=== PATIENT | male | born 1960 | race Caucasian/White ===

== ENCOUNTER 2021-03-07 06:22 | Observation (INO) | payer OTHER ==
[2021-03-07] VITALS (8 sets, daily range): BP systolic 107–138; BP diastolic 65–91
[~2021-03-07] VITALS: Ht 182.9 cm; Wt 120.7 kg
--- NOTE | ~2021-03-07 | P ---
[facility] [place] [address] PROCEDURE REPORT Name: IDANIA PEDERSEN Room #: 208-P [facility] Fabian Holt#: [id number] Admission: 03/07/21 Attend Phys: Parvez Pelayo MD Discharge: 03/08/21 Date of : 56 Report #: [id number] THIS REPORT FOR: cc: David Sandhu MD, Prashanth S. MD Couchonnal, Luis F. MD ~ PREOPERATIVE DIAGNOSIS: Atrial fibrillation. POSTOPERATIVE DIAGNOSIS: Atrial fibrillation. PROCEDURES PERFORMED: 1. Atrial fibrillation ablation, CPT code 03859. 2. 3D mapping, CPT code 12216. 3. Intracardiac echo, CPT code 22457. 4. Focal ablation, CPT code 21063. HISTORY: The patient is a 60-year-old male with history of AFib, here for ablation. ANESTHESIA: The patient underwent general anesthesia with no anesthesia related complications. DESCRIPTION OF PROCEDURE: The patient underwent informed consent. He was then brought to the EP laboratory in a fasting and sedated state, prepped and draped in a standard fashion. I then obtained access to the right femoral vein x 3, placing an 8, 9 and 7-Khmer short sheath. Under fluoroscopy, I placed a Decapolar catheter in the coronary sinus and an ICE catheter in the right atrium. At baseline, the patient was in atrial fibrillation. The patient was systemically heparinized. Transseptal was performed using an SL1 sheath and a [place] needle, which was straightforward and then I exchanged for the cryosheath and placed the Lasso catheter in the left atrium and created a detailed 3D voltage map of the left atrium. I then started isolating the pulmonary veins. The left superior pulmonary vein underwent a 300-second freeze isolating at 125 seconds. The left inferior pulmonary vein underwent a 4-minute followed by 3-minute freeze. The vein isolated during the second freeze at 37 seconds. The right superior pulmonary vein underwent a 300-second freeze and isolated at 120 seconds. The right inferior pulmonary vein underwent multiple freezes and was initially isolated and then on repeat voltage mapping, there was a small area of signal noted along the posterior walter. Multiple ablation attempts at this site, which did not make these signals disappear, but on repeat voltage mapping the area around this vein appeared isolated. The patient then underwent posterior wall isolation. I performed 3 freezes each of 180 seconds duration along the posterior wall. Repeat voltage mapping showed isolation of the veins in this posterior wall segment. The patient then [facility] [address] [place] [address] PROCEDURE REPORT Name: IDANIA PEDERSEN Room #: 208-P [facility].#: [id number] Admission: 03/07/21 Attend Phys: Parvez Pelayo MD Discharge: 03/08/21 Date of : 56 Report #: [id number] underwent 200 joule synchronized cardioversion with yazidi of sinus rhythm. There were no other arrhythmias and therefore, the procedure was concluded. The patient had no evidence of pericardial effusion on ICE. The patient received systemic protamine and once ACT was in acceptable range, catheters and sheaths were pulled and hemostasis was obtained. By: 1055 1950 Parvez Pelayo MD /nt
[2021-03-07 07:28] LABS: BASOPHILS 0.7 % (0.0-2.0); EOSINOPHILS 3.2 % (0.0-3.0); HEMATOCRIT 43.3 % (42.0-52.0); HEMOGLOBIN 14.2 gm/dL (14.0-18.0); LYMPHOCYTES 23.6 % (24.0-44.0); MCH 29.3 pg (26.0-34.0); MCHC 32.7 g/dL (28.0-37.0); MCV 89.4 fL (80.0-100.0); MONOCYTES 8.8 % (1.0-8.0); PLATELET COUNT 227 thou/uL (150-400); POLYS 63.7 % (36.0-66.0); RBC 4.84 mil/uL (4.50-6.00); RDW 13.8 % (10.5-14.5); WBC 4.7 thou/uL (4.0-11.0)
[2021-03-07] MEDS ORDERED: ELIQUIS5 MG PO (07:31)
[2021-03-07] MEDS ORDERED: AMIODARONE HCL400 MG PO (07:31)
[2021-03-07] MEDS ORDERED: LIPITOR20 MG PO (07:32)
[2021-03-07] MEDS ORDERED: FUROSEMIDE 20 M20 MG PO (07:32)
[2021-03-07] MEDS ORDERED: TOPROL XL50 MG PO (07:33)
[2021-03-07 07:37] LABS: CALCIUM 8.6 mg/dL (8.5-10.1); CREATININE 1.1 mg/dL (0.7-1.3); POTASSIUM 4.4 mmol/L (3.5-5.1)
[2021-03-07 07:42] LABS: APTT 26.9 Seconds (24.5-32.8); INR 1.01
[2021-03-07 07:43] LABS: ALBUMIN 3.5 g/dL (3.4-5.0); TOTAL BILIRUBIN 0.7 mg/dL (0.2-1.0)
--- NOTE | 2021-03-07 16:38 | 2DMMODE ---
[address] [address] 2 D/M-MODE ECHOCARDIOGRAM Name: IDANIA PEDERSEN Room #: 208-P [facility] JulietteTeto#: [id number] Admission: 03/07/21 Attend Phys: Parvez Pelayo MD Discharge: Date of : 56 Report #: [id number] THIS REPORT FOR: cc: David Sandhu MD, Prashanth S. MD Lammoglia, Francisco J. MD ~ APPROVED REPORT Study performed: 03/07/2021 15:44:27 EXAM: Comprehensive 2D, Doppler, and color-flow Echocardiogram Patient Location: Bedside Room #: 208 Status: routine BSA: 2.41 HR: 80 bpm BP: 138/91 mmHg Rhythm: NSR Other Information Study Quality: Good Indications S^P Atriral fibrillation ablation. Left Ventricle The left ventricle is normal size. There is normal LV segmental wall motion. There is normal left ventricular wall thickness. Left ventricular systolic function is normal. The left ventricular ejection fraction is within the normal range. LVEF is 55-60%. Right Ventricle The right ventricle is normal size. The right ventricular systolic function is normal. Atria Left atrium is dilated. Right atrium is dilated. Aortic Valve The aortic valve is normal in structure. Mitral Valve The mitral valve is normal in structure. [address] [place] [address] 2 D/M-MODE ECHOCARDIOGRAM Name: IDANIA PEDERSEN Room #: 208-P [facility].R.#: [id number] Admission: 03/07/21 Attend Phys: Parvez Mckinneychonnbowen Discharge: Date of : 56 Report #: [id number] Tricuspid Valve The tricuspid valve is normal in structure. Pulmonic Valve The pulmonary valve is normal in structure. Great Vessels The aortic root is normal in size. IVC is normal in size and collapses >50% with inspiration. Pericardium There is no pericardial effusion. <Conclusion> The left ventricle is normal size. LVEF is 55-60%. The right ventricle is normal size. Right atrium is dilated. The aortic valve is normal in structure. The mitral valve is normal in structure. The tricuspid valve is normal in structure. The aortic root is normal in size. There is no pericardial effusion. <ELECTRONICALLY SIGNED> By: Hi Thompson MD 03/07/21 1637 [id number] Hi Thompson MD /INF
--- NOTE | 2021-03-07 19:31 | NUR ---
Pt arrived on unit at 1300 from labor conciliator post AFIB ablation. Pt has been A&0x4, VS stable and afebrile. Hemostasis reached at 1130. Stop cock in right groin was removed at 1330. Bed rest ended at 1430. Pt is up ad ruperto. No complaints of pain. No current concerns. Continue to monitor.
[2021-03-08 03:46] VITALS: BP 120/74
--- NOTE | 2021-03-08 07:32 | NUR ---
PT WITH OUT COMPLAINTS THRU THE NOC, R GROIN REMAINS CDI, UP ADLIB IN ROOM HOPES TO GO HOME TODAY, REPORT GIVEN TO NEXT SHIFT TO CON'T PPOC.
[2021-03-08 08:00] VITALS: BP 123/72
[2021-03-08 11:42] VITALS: BP 119/84
[2021-03-08 14:07] VITALS: BP 119/84
--- NOTE | 2021-03-08 14:21 | NUR ---
DISCHARGED PATIENT. EXPLAINED AND HIGHLIGHTED DISCHARGE INSTRUCTIONS TO PATIENT AND SPOUSE. INCLUDING UPCOMING APPOINTMENTS. NO MEDICATION CHANGES. PATIENT AAND SPOUSE DENIED HAVING ANY QUESTIONS. REMOVED IV WITH TIP INTACT AND REMOVED SHOP CLERK.
== END 2021-03-08 14:43 | disposition home or self-care (01) ==
LOC: CATH 06:22 → 2N 13:09 → CATH 14:14 → 2N 17:52
PROVIDERS: ADMIT Internal Medicine Cardiovascular Disease; ATTEND Internal Medicine Cardiovascular Disease
DX: I48.91 Unspecified atrial fibrillation (principal); Z20.822 Contact with and (suspected) exposure to COVID-19; I10 Essential (primary) hypertension; E78.5 Hyperlipidemia, unspecified; M19.90 Unspecified osteoarthritis, unspecified site; Z79.899 Other long term (current) drug therapy; Z23 Encounter for immunization
CPT/HCPCS: 62110; 62900; 70005